=== PATIENT | female | born 1985 | race Two or more races ===

== ENCOUNTER 2021-02-15 16:58 | Emergency (ER) | payer OTHER ==
[~2021-02-15] VITALS: Ht 154.9 cm; Wt 104.0 kg
--- NOTE | 2021-02-15 19:18 | PHYS DOC ---
General Adult EDM: Chief Complaint: DIZZY/LIGHT HEADED HPI: HPI: Patient is a 32-year-old female presenting for dizziness. This is been ongoing for 1 week without any known inciting event, trauma, ingestion, sick contact or recent travel. Nothing known makes better, standing and walking around makes wo rse. Patient denies being in any pain and has had no falls. Timing of symptoms have been constant since onset without any change. States when she is up and walking she at times feels like she is on a boat and other times feels like she is drifting right. Patient does admit that she started experiencing URI symptoms such as nasal congestion, rhinorrhea and postnasal drip that was first noticed yesterday. She has high cholesterol for which she takes medications for, no other known medical issues. She is fully vaccinated against COVID-19. She saw her primary care physician for this ongoing dizziness shortly prior to arrival and after comprehensive physical exam and EKG, she was referred to our facility for evaluation. She has no significant family medical history of any congenital abnormalities Review of Systems: Review of Systems: Fourteen body systems of review of systems have been reviewed. See HPI for pertinent positives and negative responses, other robert all other systems are negative, non-pertinent or non-contributory Heart Score: C/O Chest Pain: No HEART Score for Chest Pain: HEART Score for Chest Pain Response (Comments) Value History Slighlty/Non-Suspicious 0 ECG Normal 0 Age < 45 0 Risk Factors No Risk Factors 0 Total 0 Risk Factors: Risk Factors: DM, Current or recent (<one month) smoker, HTN, HLP, family history of CAD, obesity. Risk Scores: Score 0 - 3: 2.5% MACE over next 6 weeks - Discharge Home Score 4 - 6: 20.3% MACE over next 6 weeks - Admit for Clinical Observation Score 7 - 10: 72.7% MACE over next 6 weeks - Early Invasive Strategies Allergies: Allergies: Allergies Coded Allergies Type Severity Reaction Last Updated Verified Penicillins Allergy Intermediate SOb, n/v 02/15/21 Yes Physical Exam: PE: Constitutional: Well developed, well nourished, no acute distress, non-toxic appearance. HENT: Normocephalic, atraumatic, bilateral external ears and inner ears normal, oropharynx moist, no oral exudates, nasal turbinates boggy bilaterally with postnasal drip present Eyes: PERRLA, EOMI, conjunctiva normal, no discharge. Neck: Normal range of motion, no tenderness, supple, no stridor. No nuchal rigidity or other meningeal signs Cardiovascular: Heart rate tachycardic, sinus rhythm, no murmurs rubs or gallops Lungs & Thorax: Bilateral breath sounds clear to auscultation Abdomen: Bowel sounds normal, soft, no tenderness, no masses, no pulsatile masses. Nonsurgical abdomen, no peritoneal signs Skin: Warm, dry, no erythema, no rash. Back: No tenderness, no CVA tenderness. Extremities: No tenderness, no cyanosis, no clubbing, ROM intact, no edema. Neurologic: Alert and oriented X 3, cranial nerves II through XII intact, normal motor & sensory function, no focal deficits noted. Psychologic: Affect normal, judgement normal, mood normal. Current Patient Data: Labs: Laboratory Tests Test 02/15/21 19:08 02/15/21 19:31 02/15/21 19:45 Urine Collection Type Unknown Urine Color Yellow Urine Clarity Clear Urine pH 6.0 Urine Specific [place] <=1.005 Urine Protein Negative mg/dL Urine Glucose (UA) Negative mg/dL Urine Ketones (Stick) Negative mg/dL Urine Blood Negative Urine Nitrite Negative Urine Bilirubin Negative Urine Urobilinogen Dipstick 0.2 mg/dL Urine Leukocyte Esterase Trace Urine RBC Rare /HPF Urine WBC 5-10 /HPF Urine Squamous Epithelial Cells Mod /LPF Urine Bacteria Few /HPF Urine Mucus Slight /LPF Bedside Urine HCG, Qualitative Hcg negative Influenza Type A Antigen Negative Influenza Type B Antigen Negative SARS-CoV-2 Antigen (Rapid) Negative White Blood Count 10.8 x10^3/uL Red Blood Count 4.87 x10^6/uL Hemoglobin 14.0 g/dL Hematocrit 40.8 % Mean Corpuscular Volume 84 fL Mean Corpuscular Hemoglobin 29 pg Mean Corpuscular Hemoglobin Concent 34 g/dL Red Cell Distribution Width 13.0 % Platelet Count 373 x10^3/uL Neutrophils (%) (Auto) 71 % Lymphocytes (%) (Auto) 21 % Monocytes (%) (Auto) 6 % Eosinophils (%) (Auto) 0 % Basophils (%) (Auto) 1 % Neutrophils # (Auto) 7.7 x10^3/uL Lymphocytes # (Auto) 2.3 x10^3/uL Monocytes # (Auto) 0.7 x10^3/uL Eosinophils # (Auto) 0.0 x10^3/uL Basophils # (Auto) 0.1 x10^3/uL Sodium Level 139 mmol/L Potassium Level 3.5 mmol/L Chloride Level 102 mmol/L Carbon Dioxide Level 25 mmol/L Anion Gap 12 Blood Urea Nitrogen 12 mg/dL Creatinine 0.6 mg/dL Estimated GFR (Cockcroft-Gault) 112.5 BUN/Creatinine Ratio 20 Glucose Level 92 mg/dL Calcium Level 8.8 mg/dL Total Bilirubin 0.7 mg/dL Aspartate Amino Transf (AST/SGOT) 23 U/L Alanine Aminotransferase (ALT/SGPT) 38 U/L Alkaline Phosphatase 96 U/L Total Protein 8.2 g/dL Albumin 3.7 g/dL Albumin/Globulin Ratio 0.8 Current Medications Medications (Trade) Dose Ordered Sig/Carlitos Route PRN Reason Start Time Stop Time Status Last Admin Dose Admin Sodium Chloride 1,000 ml @ 1,000 mls/hr 1X ONCE IV 02/15/21 19:30 02/15/21 20:29 02/15/21 19:52 Meclizine HCl (Antivert) 25 mg 1X ONCE PO 02/15/21 19:30 02/15/21 19:32 DC 02/15/21 19:51 Vital Signs: Vital Signs Date Time Temp Pulse Resp B/P (MAP) Pulse Ox O2 Delivery O2 Flow Rate FiO2 02/15/21 19:17 98.2 117 16 155/98 (117) 99 Room Air 98.2 Vital Signs Date Time Temp Pulse Resp B/P (MAP) Pulse Ox O2 Delivery O2 Flow Rate FiO2 02/15/21 19:17 98.2 117 16 155/98 (117) 99 Room Air 98.2 EKG: EKG: EKG ordered and interpreted by myself at 1918 hrs. as sinus tachycardia at 108 bpm, unremarkable intervals, no axis deviation, no obvious ischemic findings, no STEMI Radiology/Procedures: Radiology/Procedures: CT scan of the head without contrast 02/15/2021 Clinical History: Dizziness. Technique: Unenhanced, contiguous, 5 mm axial sections were obtained through the head. One or more of the following individualized dose reduction techniques were utilized for this study: 1. Automated exposure control. 2. Adjustment of the mA and/or kV according to patient size. 3. Use of iterative reconstruction technique. Findings: The ventricles and sulci are within normal limits in size and configuration. No area of abnormal attenuation is seen involving the brain parenchyma. No extra-axial fluid collection is noted. No skull fracture is seen. Impression: No acute intracranial abnormality is seen. Electronically signed by: Daquan Qureshi MD (02/15/2021 8:14 PM) [id number] Course & Med Decision Making: Course & Med Decision Making ABCs unremarkable HPI physical exam and comprehensive ER work-up nonconcerning for any emergent or surgical issues I discussed most likely diagnosis of acute labyrinthitis given URI symptoms and the fact that symptoms improved with IV fluid rehydration and meclizine. Also discussed other diagnoses such as vertigo etc. I did discuss potentially life-threatening diagnoses such as pulmonary embolism given patient's tachycardia but this is apparently chronic per patient and documented in numerous outpatient primary care visits in the past. I disclose no indication for further diagnostic work-up needed in ER setting and that close outpatient follow-up is advised for condition. Strict return precautions discussed with good understanding by patient and spouse, all questions and concerns addressed prior to ER departure in improved condition Dragon Disclaimer: Patty Disclaimer: This electronic medical record was generated, in whole or in part, using a voice recognition dictation system. Departure Departure Impression: Primary Impression: Dizziness Additional Impressions: Viral syndrome Person under investigation for COVID-19 Tachycardia Disposition: 01 HOME / SELF CARE / HOMELESS Condition: IMPROVED Referrals: KARLO MCGOWAN (PCP) Patient Instructions: Dizziness Additional Instructions: As discussed prior to ER departure, your comprehensive ER work-up was nonconcerning for any emergent or surgical issues. I discussed with you and your the most likely diagnosis of labor and [place] given your recent upper respiratory symptoms. Your symptoms improved with IV fluid rehydration and meclizine antidizziness medication. I disclosed little indication for further diagnostic work-up in ER setting. As such, it is pertinent you contact your primary care provider first thing in the morning to review ER visit today and need for close outpatient follow-up. If any concerning signs or symptoms present prior to then, please do not hesitate to come back for repeat evaluation. It was a pleasure to take care of you and I wish you the best going forward Scripts Meclizine Hcl (MECLIZINE HCL) 25 Mg Tablet 25 MG PO PRN TID PRN for DIZZINESS, #30 TAB dizziness Prov: GONZALEZ FORTE DO 02/15/21 GONZALEZ FORTE DO Feb 15, 2021 19:18
[2021-02-15 19:23] LABS: BILIRUBIN,URINE NEGATIVE (NEG); CLARITY,URINE CLEAR; COLOR,URINE YELLOW; NITRITE,URINE NEGATIVE (NEG); PROTEIN,URINE NEGATIVE (NEG-TRACE); UROBILINOGEN,URINE 0.2 mg/dL (0.2 mg/dL)
[2021-02-15 19:29] LABS: BACTERIA,URINE FEW /HPF (0-FEW); RBC,URINE RARE /HPF (0-2)
[2021-02-15] MEDS ORDERED: IV NORMAL SALINE 1000ML BAG 1,000 ML IV ONE (19:30)
[2021-02-15] MEDS ORDERED: MECLIZINE HCL 12.5 MG TABLET. PO ONE (19:30)
[2021-02-15 19:50] LABS: BASO # 0.1 x10^3/uL (0.0-0.2); BASO % 1 % (0-3); EOS % 0 % (0-3); HEMATOCRIT 40.8 % (36.0-47.0); LYMPH # 2.3 x10^3/uL (1.0-4.8); LYMPH % 21 % (24-48); MEAN CORPUSCULAR HEMOGLOBIN 29 pg (25-35); MEAN CORPUSCULAR HGB CONC 34 g/dL (31-37); MEAN CORPUSCULAR VOLUME 84 fL (79-100); MONO # 0.7 x10^3/uL (0.0-1.1); MONO % 6 % (0-9); NEUT # 7.7 x10^3/uL (1.8-7.7); NEUT % 71 % (31-73); PLATELET COUNT 373 x10^3/uL (140-400); RED BLOOD COUNT 4.87 x10^6/uL (3.50-5.40); WHITE BLOOD COUNT 10.8 x10^3/uL (4.0-11.0)
[2021-02-15 19:58] LABS: CALCIUM 8.8 mg/dL (8.5-10.1); CREATININE 0.6 mg/dL (0.6-1.0); GFR 112.5; POTASSIUM 3.5 mmol/L (3.5-5.1)
[2021-02-15 19:59] LABS: INFLUENZA A PATIENT NEGATIVE (NEGATIVE); INFLUENZA B PATIENT NEGATIVE (NEGATIVE)
[2021-02-15 20:04] LABS: ALBUMIN 3.7 g/dL (3.4-5.0); ALBUMIN/GLOBULIN RATIO 0.8 (1.0-1.7); TOTAL BILIRUBIN 0.7 mg/dL (0.2-1.0); TOTAL PROTEIN 8.2 g/dL (6.4-8.2)
[2021-02-15 20:15] VITALS: BP 148/102
--- NOTE | 2021-02-15 20:16 | RAD ---
CT scan of the head without contrast 02/15/2021 Clinical History: Dizziness. Technique: Unenhanced, contiguous, 5 mm axial sections were obtained through the head. One or more of the following individualized dose reduction techniques were utilized for this study: 1. Automated exposure control. 2. Adjustment of the mA and/or kV according to patient size. 3. Use of iterative reconstruction technique. Findings: The ventricles and sulci are within normal limits in size and configuration. No area of abn ormal attenuation is seen involving the brain parenchyma. No extra-axial fluid collection is noted. N o skull fracture is seen. Impression: No acute intracranial abnormality is seen. Electronically signed by: Daquan Qureshi MD (02/15/2021 8:14 PM) [id number]
[2021-02-15] MEDS ORDERED: MECL-75 PO (20:39)
--- NOTE | 2021-02-15 23:21 | EKG ---
[facility] [address] [place] [id number] Test Date: 2021-02-15 Test Time: 19:11:58 Pat Name: ELOY WHITLEY Department: Room: Gender: F Help Desk Agent: : [id number] Requested By: GONZALEZ FORTE Order Number: [id number] Reading MD: Fred Garcia MD Measurements Intervals [place] Rate: 108 P: 29 ND: 144 QRS: 33 QRSD: 72 T: 21 QT: 308 QTc: 416 Interpretive Statements SINUS TACHYCARDIA NON-SPECIFIC ST/T CHANGES Electronically Signed On 02-16-2021 9:10:03 [employer]INO DEALER by Fred Garcia MD
--- NOTE | 2021-02-17 10:01 | NUR ---
IP: Informed pt of negative covid test. Pt verbalized understanding.
== END 2021-02-15 20:51 | disposition home or self-care (01) ==
LOC: ER 16:58
DX: R42 Dizziness and giddiness (principal); Z20.822 Contact with and (suspected) exposure to COVID-19; B34.9 Viral infection, unspecified; R00.0 Tachycardia, unspecified; Z88.0 Allergy status to penicillin
CPT/HCPCS: 36415; 70450; 80053; 81001; 81025; 85025; 87086; 87426; 87804; 93005; 96360; 99285; J7030; J8597; U0003; U0005